=== PATIENT | female | born 1945 | race Native Hawaiian/Other Pacific Islander ===

== ENCOUNTER 2019-11-16 12:26 | Emergency (ER) | payer MEDICARE, BC ==
[~2019-11-16] VITALS: Ht 154.9 cm; Wt 53.5 kg
--- NOTE | 2019-11-16 13:15 | NUR ---
Patient transported to CT in stable condition
--- NOTE | 2019-11-16 13:27 | NUR ---
Patient back in room from CT
--- NOTE | 2019-11-16 13:48 | NUR ---
Patient discharged to home in stable conditon. Written and verbal after care instructions given. Patient verbalizes understanding of instructions. Patient ambulated with stable gait.
[2019-11-16 13:49] VITALS: BP 141/86
== END 2019-11-16 13:53 | disposition home or self-care (01) ==
LOC: ER 12:26
DX: S00.03XA Contusion of scalp, initial encounter (principal); I25.10 Atherosclerotic heart disease of native coronary artery without angina pectoris; J45.909 Unspecified asthma, uncomplicated; K21.9 Gastro-esophageal reflux disease without esophagitis; Z88.0 Allergy status to penicillin; W01.198A Fall on same level from slipping, tripping and stumbling with subsequent striking against other object, initial encounter; Y93.89 Activity, other specified; Y92.89 Other specified places as the place of occurrence of the external cause; Y99.8 Other external cause status
CPT/HCPCS: 70450; A4663